=== PATIENT | female | born 1990 | race American Indian/Alaskan Native ===

== ENCOUNTER 2020-11-27 19:06 | Emergency (ER) | payer MEDICAID ==
[2020-11-27 20:26] VITALS: BP 123/75
--- NOTE | 2020-11-27 20:28 | Event Note ---
ED Screening Note Date of service: 11/27/20 Time: 20:27 ED Screening Note: 30-year-old female patient with history of gestational diabetes and seizure disorder presents to emergency department with complaints of a seizure today. Patient states that she " felt a seizure coming on " and struck the back of her head against a brick as she fell. Patient is on Keppra but has been cutting her doses in half for the last several months. States she usually only has seizures when she is . Patient states she miscarried approximately 1 month ago. Tachycardic in triage. General: Awake, appropriately interactive, no acute distress. Neck: Supple. Full range of motion intact. Cardiovascular: Normal peripheral perfusion. Pulmonary: No respiratory distress. Patient is speaking normally without use of accessory muscles. Skin: No apparent rashes or lesions. Neurological: No facial asymmetry. Speech is clear. Follows commands. Patient is alert and oriented. Musculoskeletal: Moves all four extremities spontaneously with normal range of motion. Psych: Cooperative. Appropriate mood and affect. I have greeted and performed a focused rapid initial assessment of this patient. A comprehensive ED assessment and evaluation of the patient, analysis of all test results, and completion of the medical decision-making process will be conducted by additional ED providers. This initial assessment/diagnostic orders/clinical plan/treatment(s) is/are subject to change based on patients he alth status, clinical progression and re-assessment. Further treatment and workup at subsequent clinical provider's discretion. Patient/guardian urged not to elope from the ED as their condition may be serious if not clinically assessed and managed.
[2020-11-27 20:50] LABS: Basophils # (Auto) 0.1 K/mm3 (0.0-0.1); Basophils % (Auto) 0.6 % (0.0-1.8); Eosinophils # (Auto) 0.2 K/mm3 (0.0-0.4); Eosinophils % (Auto) 1.4 % (0.0-4.3); Hematocrit 44.3 % (30.3-42.9); Hemoglobin 15.1 gm/dl (10.1-14.3); Lymphocytes # (Auto) 2.8 K/mm3 (1.2-5.4); Lymphocytes % (Auto) 16.8 % (13.4-35.0); Mean Corpuscular HGB Conc 34 % (30-34); Mean Corpuscular Volume 87 fl (79-97); Monocytes # (Auto) 0.9 K/mm3 (0.0-0.8); Monocytes % (Auto) 5.5 % (0.0-7.3); Platelet Count 337 K/mm3 (140-440); Red Blood Count 5.09 M/mm3 (3.65-5.03); Red Cell Distribution Width 13.9 % (13.2-15.2)
[2020-11-27 21:10] LABS: Alanine Aminotransferase 20 units/L (7-56); Albumin 4.1 g/dL (3.9-5); BUN/Creatinine Ratio 17; Blood Urea Nitrogen 10 mg/dL (7-17); Calcium 8.8 mg/dL (8.4-10.2); Hemolysis Index 10
[2020-11-28] MEDS ORDERED: levETIRAcetam 1000 MG/NS 0.75% 1,000 MG/100 ML BAG IV ONE (01:54)
[2020-11-28] MEDS ORDERED: levETIRAcetam 500 MG TAB PO ONE (02:03)
--- NOTE | 2020-11-28 02:08 | Emergency Department Report ---
HPI - General Chief Complaint: Seizure Time Seen by Provider: 11/28/20 01:52 - HPI HPI: Room 2 The patient is a 30-year-old female present with a chief complaint of seizure. The patient states that her for the past 6 months she is to decrease her Keppra dose and actually stopped taking it for some time. The patient states today she felt her seizure, Then had a generalized tonic-clonic seizure. Patient denies headache but states he has soreness in her body which she normally has after seizures. Patient states her last seizure before today occurred 2 weeks ago. ED Past Medical Hx - Past Medical History Previous Medical History?: Yes Hx Diabetes: (gestational) Hx Seizures: Yes - Surgical History Past Surgical History?: No Hx Cholecystectomy: Yes - Family History Family history: no significant - Social History Smoking Status: Current Every Day Smoker (1/2 pack/day) Substance Use Type: None (Denies illicit drug use) - Medications Home Medications: Home Medications Medication Instructions Recorded Confirmed Last Taken Type Metaxalone [Skelaxin] 800 mg PO TID #15 tablet 11/28/20 Unknown Rx levETIRAcetam [Keppra TAB] 500 mg PO BID #90 tablet 11/28/20 Unknown Rx ED Review of Systems ROS: Stated complaint: SEIZURE/HEAD/NECK INJURY Other details as noted in HPI Constitutional: no symptoms reported Eyes: denies: eye pain ENT: denies: throat pain Respiratory: no symptoms reported Cardiovascular: denies: chest pain Endocrine: no symptoms reported Gastrointestinal: denies: abdominal pain Genitourinary: denies: dysuria Musculoskeletal: myalgia Neurological: denies: headache Physical Exam - Physical Exam Vital Signs: Vital Signs 11/27/20 20:18 Temperature 98.7 F Pulse Rate 105 H Respiratory 16 Rate Blood Pressure 123/75 [Right] O2 Sat by Pulse 95 Oximetry Physical Exam: GENERAL: The patient is well-developed well-nourished female lying on stretcher not appearing to be in acute distress. [] HEENT: Normocephalic. Atraumatic. Extraocular motions are intact. Patient has moist mucous membranes. NECK: Supple. Trachea midline CHEST/LUNGS: Clear to auscultation. There is no respiratory distress noted. HEART/CARDIOVASCULAR: Regular. There is no tachycardia. There is no gallop rub or murmur. ABDOMEN: Abdomen is soft, nontender. Patient has normal bowel sounds. There is no abdominal distention. SKIN: There is no rash. There is no edema. There is no diaphoresis. NEURO: The patient is awake, alert, and oriented. The patient is cooperative. The patient has no focal neurologic deficits. The patient has normal speech and gait. Cranial nerves II through XII grossly intact MUSCULOSKELETAL: There is no evidence of acute injury. ED Course Vital Signs 11/27/20 20:18 Temperature 98.7 F Pulse Rate 105 H Respiratory 16 Rate Blood Pressure 123/75 [Right] O2 Sat by Pulse 95 Oximetry ED Medical Decision Making - Lab Data Result diagrams: 11/27/20 20:31 11/27/20 20:31 Laboratory Tests 11/27/20 11/27/20 11/27/20 20:31 20:31 20:31 WBC 16.4 H RBC 5.09 H Hgb 15.1 H Hct 44.3 H MCV 87 MCH 30 MCHC 34 RDW 13.9 Plt Count 337 Lymph % (Auto) 16.8 [place] % (Auto) 5.5 Eos % (Auto) 1.4 Baso % (Auto) 0.6 Lymph # (Auto) 2.8 [place] # (Auto) 0.9 H Eos # (Auto) 0.2 Baso # (Auto) 0.1 Seg Neutrophils % 75.7 H Seg Neutrophils # 12.4 H Sodium 137 Potassium 4.1 Chloride 103.9 Carbon Dioxide 23 Anion Gap 14 BUN 10 Creatinine 0.6 Estimated GFR > 60 BUN/Creatinine Ratio 17 Glucose 108 H Calcium 8.8 Phosphorus 2.20 L Magnesium 2.40 H Total Bilirubin 0.20 AST 12 ALT 20 Alkaline Phosphatase 146 H Total Protein 7.4 Albumin 4.1 Albumin/Globulin Ratio 1.2 HCG, Quant < 2 Plasma/Serum Alcohol 11/27/20 20:31 WBC RBC Hgb Hct MCV MCH MCHC RDW Plt Count Lymph % (Auto) [place] % (Auto) Eos % (Auto) Baso % (Auto) Lymph # (Auto) [place] # (Auto) Eos # (Auto) Baso # (Auto) Seg Neutrophils % Seg Neutrophils # Sodium Potassium Chloride Carbon Dioxide Anion Gap BUN Creatinine Estimated GFR BUN/Creatinine Ratio Glucose Calcium Phosphorus Magnesium Total Bilirubin AST ALT Alkaline Phosphatase Total Protein Albumin Albumin/Globulin Ratio HCG, Quant Plasma/Serum Alcohol < 0.01 - Medical Decision Making Hypophosphatemia asymptomatic with a level greater than 2.0. Repletion not indicated at this time - Differential Diagnosis Seizure Critical care attestation.: If time is entered above; I have spent that time in minutes in the direct care of this critically ill patient, excluding procedure time. ED Disposition Clinical Impression: Seizure, Hypophosphatemia Disposition: TO HOME OR SELFCARE Is pt being admited?: No Does the pt Need Aspirin: No Condition: Stable Instructions: Epilepsy, [id number] Additional Instructions: Return to the emergency department should you develop worsening symptoms, inability to tolerate food or liquids, high fever or any other concerns Prescriptions: levETIRAcetam [Keppra TAB] 500 mg PO BID #90 tablet Metaxalone [Skelaxin] 800 mg PO TID #15 tablet Referrals: ALVIAN CASTILLO MD [Staff Physician] - 3-5 Days (Dr. Castillo is a neurologist. Please follow-up with him for further evaluation) Time of Disposition: 02:10
== END 2020-11-28 02:27 | disposition home or self-care (01) ==
LOC: ED 19:06
DX: R56.9 Unspecified convulsions (principal); E83.39 Other disorders of phosphorus metabolism; E11.9 Type 2 diabetes mellitus without complications; Z90.49 Acquired absence of other specified parts of digestive tract; F17.200 Nicotine dependence, unspecified, uncomplicated; Z79.899 Other long term (current) drug therapy
CPT/HCPCS: 36415; 80053; 80320; 83735; 84100; 84702; 85025; G0480